=== PATIENT | male | born 1960 | race Caucasian/White ===

== ENCOUNTER 2019-08-02 08:20 | Emergency (ER) | payer BC, MEDICAID ==
[~2019-08-02] VITALS: Ht 167.6 cm; Wt 88.5 kg
[2019-08-02 08:39] VITALS: BP_SYST 126
--- NOTE | 2019-08-02 08:40 | NUR ---
Stacia jasmine in [facility] - 08/02/19 at 1012 by SDEDTD VIKAS Gomes at bedside examining patient.
--- NOTE | 2019-08-02 08:40 | NUR ---
Patient to ER bed 7 to gown for evaluation. Side rails up.
--- NOTE | 2019-08-02 08:42 | NUR ---
Patient presents to ER C/O dizziness. Patient A&Ox4, ambulatory to ER, afebrile, skin pink and warm, denies N/V/D, denies pain. Patient states dizziness started yesterday, pt called PMD and was told to increase PO fluids. Dizziness stopped after PO intake, today dizziness again.
--- NOTE | 2019-08-02 08:45 | NUR ---
ER Dr. Gomes at bedside examining patient.
[2019-08-02] MEDS ORDERED: MECLIZINE HCL 25 MG TABLET (ANITVERT) PO ONE (09:00)
[2019-08-02] MEDS ORDERED: METOCLOPRAMIDE HCL 10 MG/2 ML VIAL IVP ONE (09:00)
--- NOTE | 2019-08-02 09:00 | NUR ---
PT in radiology
[2019-08-02 09:22] LABS: BASOPHILS # (AUTO) 0.1 K/uL (0.0-0.2); BASOPHILS % (AUTO) 0.7 % (0.0-2.0); EOSINOPHILS # (AUTO) 0.2 K/uL (0.0-0.4); EOSINOPHILS % (AUTO) 1.9 % (0.0-4.0); HEMATOCRIT 48.2 % (36-54); HEMOGLOBIN 16.4 g/dL (14.0-18.0); LYMPHOCYTES # (AUTO) 1.4 K/uL (1.0-5.5); LYMPHOCYTES % (AUTO) 14.8 % (20.5-51.5); MEAN CORPUSCULAR HEMOGLOBIN 33 pg (27-31); MEAN CORPUSCULAR HGB CONC 34 % (32-36); MEAN CORPUSCULAR VOLUME 97 fL (79.0-98.0); MONOCYTES # (AUTO) 0.6 K/uL (0.0-1.0); MONOCYTES % (AUTO) 6.9 % (1.7-9.3); NEUTROPHILS # (AUTO) 7.1 K/uL (1.8-7.7); NEUTROPHILS % (AUTO) 75.7 % (40.0-70.0); PLATELET COUNT (AUTO) 250 K/uL (130-430); RED BLOOD CELL COUNT(AUTO) 4.97 MIL/uL (4.2-6.2); RED CELL DISTRIBUTION WIDTH 13.3 % (9.0-15.0); WHITE BLOOD COUNT (AUTO) 9.4 K/uL (4.8-10.8)
[2019-08-02 09:28] LABS: CALCIUM 9.2 mg/dL (8.4-11.0); CREATININE 0.96 mg/dL (0.55-1.30); POTASSIUM 5.2 mmol/L (3.5-5.1)
--- NOTE | 2019-08-02 09:30 | NUR ---
# 24 gauge angiocath placed to left hand . Use of asceptic technique. Opsite placed over site. Blood return noted. Flushed with 10 cc of normal saline. No evidence of infiltration noted. Patient tolerated well.
[2019-08-02 09:33] LABS: PROTHROMBIN TIME 10.1 SECS (9.5-12.5)
[2019-08-02 09:35] LABS: ALBUMIN 3.6 g/dL (3.4-4.8); TOTAL BILIRUBIN 0.7 mg/dL (0.0-1.0)
[2019-08-02 11:20] VITALS: BP_SYST 126
--- NOTE | 2019-08-02 11:20 | NUR ---
Patient given written and verbal discharge instructions and verbalizes understanding. ER MD discussed with patient the results and treatment provided. Patient in stable condition. ID arm band removed. IV catheter removed intact and dressing applied, no active bleeding. Rx of MECLIZINE & ASPIRIN given. Patient educated on pain management and to follow up with PMD. Pain Scale 0/10. Opportunity for questions provided and answered. Medication side effect fact sheet provided.
== END 2019-08-02 11:20 | disposition home or self-care (01) ==
LOC: SED 08:20
DX: R42 Dizziness and giddiness (principal); E78.5 Hyperlipidemia, unspecified
CPT/HCPCS: 36415; 70450; 71045; 80053; 84484; 85025; 85610; 85730; 93005; 96374; 99285; J2765; J8597